=== PATIENT | male | born 1955 | race American Indian/Alaskan Native ===

== ENCOUNTER 2021-08-15 15:29 | Emergency (ER) | payer MEDICAID ==
--- NOTE | 2021-08-15 16:29 | XRay Report ---
CHEST 2 VIEWS INDICATION / CLINICAL INFORMATION: positive TB test. COMPARISON: 05/29/2021 FINDINGS: SUPPORT DEVICES: Tip of the permacath projects the level the superior vena cava. HEART / MEDIASTINUM: No significant abnormality. LUNGS / PLEURA: No significant pulmonary or pleural abnormality. No focal infiltrate is seen. Lungs a re clear. No pneumothorax. ADDITIONAL FINDINGS: No significant additional findings. IMPRESSION: 1. No acute findings. The lungs are clear. Signer Name: Niranjan Park MD Signed: 08/15/2021 4:24 PM Workstation Name: [id number]
[2021-08-15 16:58] VITALS: BP 147/82
--- NOTE | 2021-08-15 17:16 | Emergency Department Report ---
ED General Adult HPI - General Chief complaint: Medical Clearance Stated complaint: POSITIVE TB NEED CHEST XRAY PUI?: No Time Seen by Provider: 08/15/21 15:49 Source: patient Mode of arrival: Ambulatory Limitations: No Limitations - History of Present Illness Initial comments: Chief complaint: Abnormal PPD HPI: This is a 66-year-old male with history of end-stage renal disease on hemodialysis, congestive heart failure, diabetes mellitus, COPD, HIV, hypertension who presents from dialysis with positive PPD. Patient denies w eight loss, night sweats, hemoptysis. Denies new cough. Referred to emergency department for chest radiograph. Location: right, upper extremity (Right forearm positive PPD) Severity scale (0 -10): 0 Improves with: cold therapy Worsens with: none Associated Symptoms: denies other symptoms - Related Data Home Medications Medication Instructions Recorded Confirmed Last Taken ALPRAZolam [Xanax TAB] 2 mg PO Q6H PRN 12/21/15 05/31/21 05/25/21 Darunavir [Prezista] 600 mg PO BID 12/21/15 05/31/21 05/25/21 Efavirenz [Sustiva] 600 mg PO DAILY 12/21/15 05/31/21 05/25/21 Emtricitabin/Tenofovir [TRUVADA 1 tab PO QDAY 12/21/15 05/31/21 05/25/21 200-300 mg] Pregabalin [Lyrica] 100 mg PO TID 12/21/15 05/31/21 05/25/21 Ritonavir [Norvir] 100 mg PO BID 12/21/15 05/31/21 05/25/21 Zolpidem (Nf) [Ambien (Nf)] 10 mg PO QHS 12/21/15 05/31/21 05/25/21 gemfibroziL [Lopid] 600 mg PO BID 12/21/15 05/31/21 05/25/21 Previous Rx's Medication Instructions Recorded Last Taken Type Insulin Glargine [Lantus VIAL] 20 units SUB-Q QHS #1 vial 06/03/21 Unknown Rx Sennosides Tab [Senokot] 8.6 mg FEEDTUBE BID #30 tablet 06/03/21 Unknown Rx Trazodone HCl [traZODone] 150 mg PO QHS #14 06/03/21 Unknown Rx hydrALAZINE [Apresoline TAB] 75 mg PO Q8HR #120 tablet 06/03/21 Unknown Rx levETIRAcetam [Keppra] 500 mg PO BID 30 Days oral.liqd 06/03/21 Unknown Rx predniSONE [Deltasone] 20 mg PO QDAY #5 tablet 06/03/21 Unknown Rx traMADoL [Ultram 50 MG tab] 50 mg PO Q6HR PRN #20 tablet 06/03/21 Unknown Rx cloNIDine [Catapres] 0.1 mg PO TID #90 tablet 06/08/21 Unknown Rx Allergies Allergy/AdvReac Type Severity Reaction Status Date / Time No Known Allergies Allergy Unverified 12/21/15 12:58 ED Review of Systems ROS: Stated complaint: POSITIVE TB NEED CHEST XRAY Other details as noted in HPI Comment: All other systems reviewed and negative Constitutional: denies: chills, fever, malaise Respiratory: denies: cough, shortness of breath Cardiovascular: denies: chest pain Gastrointestinal: denies: abdominal pain, nausea, vomiting Neurological: denies: headache ED Past Medical Hx - Past Medical History Previous Medical History?: Yes Hx Hypertension: Yes Hx Congestive Heart Failure: Yes Hx Diabetes: Yes (Type 2,) Hx Arthritis: Yes Hx Psychiatric Treatment: Yes (bipolar) Hx Asthma: No Hx COPD: Yes Hx HIV: Yes (HIV Positive) Additional medical history: Elevated cholesterol - Surgical History Past Surgical History?: Yes Additional Surgical History: L hand, R knee - Social History Smoking Status: Former Smoker Substance Use Type: None - Medications Home Medications: Home Medications Medication Instructions Recorded Confirmed Last Taken Type ALPRAZolam [Xanax TAB] 2 mg PO Q6H PRN 12/21/15 05/31/21 05/25/21 History Darunavir [Prezista] 600 mg PO BID 12/21/15 05/31/21 05/25/21 History Efavirenz [Sustiva] 600 mg PO DAILY 12/21/15 05/31/21 05/25/21 History Emtricitabin/Tenofovir [TRUVADA 1 tab PO QDAY 12/21/15 05/31/21 05/25/21 History 200-300 mg] Pregabalin [Lyrica] 100 mg PO TID 12/21/15 05/31/2121 History Ritonavir [Norvir] 100 mg PO BID 12/21/15 05/31/21 05/25/21 History Zolpidem (Nf) [Ambien (Nf)] 10 mg PO QHS 12/21/15 05/31/21 05/25/21 History gemfibroziL [Lopid] 600 mg PO BID 12/21/15 05/31/21 05/25/21 History Insulin Glargine [Lantus VIAL] 20 units SUB-Q QHS #1 vial 06/03/21 Unknown Rx Sennosides Tab [Senokot] 8.6 mg FEEDTUBE BID #30 tablet 06/03/21 Unknown Rx Trazodone HCl [traZODone] 150 mg PO QHS #14 06/03/21 Unknown Rx hydrALAZINE [Apresoline TAB] 75 mg PO Q8HR #120 tablet 06/03/21 Unknown Rx levETIRAcetam [Keppra] 500 mg PO BID 30 Days oral.liqd 06/03/21 Unknown Rx predniSONE [Deltasone] 20 mg PO QDAY #5 tablet 06/03/21 Unknown Rx traMADoL [Ultram 50 MG tab] 50 mg PO Q6HR PRN #20 tablet 06/03/21 Unknown Rx cloNIDine [Catapres] 0.1 mg PO TID #90 tablet 06/08/21 Unknown Rx ED Physical Exam - General Limitations: No Limitations General appearance: alert, in no apparent distress - Head Head exam: Present: atraumatic, normocephalic - Eye Eye exam: Present: normal appearance - ENT ENT exam: Present: mucous membranes moist - Neck Neck exam: Present: normal inspection, full ROM - Respiratory Respiratory exam: Present: normal lung sounds bilaterally. Absent: respiratory distress, wheezes, rales, rhonchi - Cardiovascular Cardiovascular Exam: Present: regular rate, normal rhythm, normal heart sounds. Absent: systolic murmur, diastolic murmur, rubs, gallop - GI/Abdominal GI/Abdominal exam: Present: soft, normal bowel sounds. Absent: distended, tenderness, guarding, rebound - Rectal Rectal exam: Present: deferred - Extremities Exam Extremities exam: Present: normal inspection - Neurological Exam Neurological exam: Present: alert, oriented X3, normal gait - Psychiatric Psychiatric exam: Present: normal affect, normal mood - Skin Skin exam: Present: warm, dry, intact, normal color. Absent: rash ED Course Vital Signs 08/15/21 08/15/21 08/15/21 15:32 15:35 16:57 Pulse Rate 90 97 H Respiratory 20 16 16 Rate Blood Pressure 150/80 147/82 [Right] O2 Sat by Pulse 98 97 97 Oximetry ED Medical Decision Making - Radiology Data Radiology results: report reviewed Patient Name: KENN TORRES Gender: Male Date of : 1955 Referring Provider: ABDELRAHMAN MORENO Organization: [facility] Accession Number: [id number] Requested Date: August 15, 2021 15:49 Report Status: Final Requested Procedure: 1 Procedure Description: XR chest routine 2V Modality: XR Findings Reporting MD: Niranjan Park Dictation Time: August 15, 2021 15:24 Continuous Improvement Facilitator: Not available Pocket Machine Operator Date: CHEST 2 VIEWS INDICATION / CLINICAL INFORMATION: positive TB test. COMPARISON: 05/29/2021 FINDINGS: SUPPORT DEVICES: Tip of the permacath projects the level the superior vena cava. HEART / MEDIASTINUM: No significant abnormality. LUNGS / PLEURA: No significant pulmonary or pleural abnormality. No focal infiltrate is seen. Lungs are clear. No pneumothorax. ADDITIONAL FINDINGS: No significant additional findings. IMPRESSION: 1. No acute findings. The lungs are clear. Signer Name: Niranjan Park MD Signed: 08/15/2021 3:24 PM Workstation Name: [id number] - Medical Decision Making Positive PPD, I examined the right forearm, raised area measures 1.5 cm. Chest radiograph negative for signs of TB infection. Patient does not have signs of active TB. Discharged home with copy of chest Results. Critical care attestation.: If time is entered above; I have spent that time in minutes in the direct care of this critically ill patient, excluding procedure time. ED Disposition Clinical Impression: Normal chest x-ray, Normal screening chest x-ray for tuberculosis, Positive PPD Disposition: HOME / SELF CARE / HOMELESS Is pt being admited?: No Does the pt Need Aspirin: No Condition: Stable
== END 2021-08-15 17:18 | disposition home or self-care (01) ==
LOC: ED 15:29
DX: R76.11 Nonspecific reaction to tuberculin skin test without active tuberculosis (principal); Z11.1 Encounter for screening for respiratory tuberculosis; Z87.891 Personal history of nicotine dependence; Z83.49 Family history of other endocrine, nutritional and metabolic diseases; F31.9 Bipolar disorder, unspecified; E11.22 Type 2 diabetes mellitus with diabetic chronic kidney disease; I13.2 Hypertensive heart and chronic kidney disease with heart failure and with stage 5 chronic kidney disease, or end stage renal disease; N18.6 End stage renal disease; I50.9 Heart failure, unspecified
CPT/HCPCS: 71046; 99284